=== PATIENT | male | born 1955 | race Caucasian/White ===

== ENCOUNTER 2017-01-11 05:33 | Inpatient (IN) | payer MEDICARE, OTHER ==
[2017-01-11] VITALS (14 sets, daily range): BP systolic 94–125; BP diastolic 54–82; PULSE 61–78; RESP 12–20; O2SAT 94–98
[~2017-01-11] VITALS: Ht 167.6 cm; Wt 86.1 kg
[~2017-01-11 05:33] MED LIST: AMOX-366 PO; ASPI-973 PO; CeFAZolin Inj 2 GM in IV Premix 1 EACH IV ONE; LIP40 PO; LOSA25TA21 PO; METH750T3 PO; Vancomycin 1 Gm/200 mL NS Premix IV ONE
[2017-01-11] MEDS: Lactated Ringer's 1,000 ML IV SCH ×3 (05:37→13:52)
[2017-01-11] MEDS ORDERED: CeFAZolin Inj 2 gm / 50mL D5W IV ONE (05:49)
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
[2017-01-11] MEDS ORDERED: Tranexamic Acid 100 mg/mL 10 mL Inj ONE (07:20)
[2017-01-11] MEDS ORDERED: 0.9% Sodium Chloride 100 ML ONE (07:20)
[2017-01-11] MEDS ORDERED: Bupivacaine Liposome 1.3% 20 mL Inj ONE (07:21)
[2017-01-11] MEDS ORDERED: Lactated Ringer's 500 ML IV PRN (08:03)
[2017-01-11] MEDS ORDERED: Lactated Ringer's 1,000 ML IV SCH (08:03)
[2017-01-11] MEDS ORDERED: Phenylephrine 10,000 mCg/mL Inj IVPUSH PRN (08:05)
[2017-01-11] MEDS ORDERED: EPHEDrine Sulfate 50 mg/mL Inj IVPUSH PRN (08:05)
[2017-01-11] MEDS ORDERED: fentaNYL-PF 50 mCg/mL 2 mL Inj IVPUSH PRN (08:05)
[2017-01-11] MEDS ORDERED: Atropine 0.4 mg/mL Inj IVPUSH PRN (08:05)
[2017-01-11] MEDS ORDERED: Dexamethasone 4 mg/mL Inj IVPUSH PRN (08:05)
[2017-01-11] MEDS ORDERED: HYDROmorphone 1 mg/mL Inj IVPUSH PRN ×2 (08:05→09:30)
[2017-01-11] MEDS ORDERED: Ondansetron 2 mg/mL 2 mL Inj IVPUSH PRN (08:05)
[2017-01-11] MEDS ORDERED: MetoCLOpramide 5 mg/mL 2 mL Inj IVPUSH PRN (08:05)
[2017-01-11] MEDS ORDERED: Labetalol 5 mg/mL 4 mL Inj IV PRN (08:05)
[2017-01-11] MEDS ORDERED: Bupivacaine Liposome 1.3% 20 mL Inj INFILTRATE ONE ×2 (08:15→08:42)
[2017-01-11] MEDS ORDERED: 0.9% Sodium Chloride 10 mL Inj INFILTRATE ONE ×2 (08:16→08:42)
[2017-01-11] MEDS ORDERED: Bupivacaine-MPF 0.5% W/EPI 30 mL Inj INFILTRATE ONE ×2 (08:17→08:42)
[2017-01-11] MEDS ORDERED: Polyethylene Glycol (PEG) 17 Gm Powder PO PRN (09:30)
[2017-01-11] MEDS ORDERED: Sodium Biphos-Phos 133 mL Enema RECTAL PRN (09:30)
[2017-01-11] MEDS ORDERED: diphenhydrAMINE 25 mg Capsule PO PRN (09:30)
[2017-01-11] MEDS ORDERED: Magnesium Hydroxide 10 mL Oral Concentration PO PRN (09:30)
[2017-01-11] MEDS ORDERED: Acetaminophen IV 1,000 MG in IV Premix 1 EACH IV ONE (09:30)
--- NOTE | 2017-01-11 10:07 | PCM.ANEP1 ---
Post Anesthesia PACU Phase 1 Assessment Vital Signs Vital Signs Date Time Temp Pulse Resp B/P Pulse Ox O2 Delivery O2 Flow Rate FiO2 01/11/17 09:47 14 98 01/11/17 09:45 61 15 100/64 98 Room Air 01/11/17 09:40 36.2 69 17 94/62 97 Room Air 01/11/17 06:05 36.2 78 18 125/77 94 Room Air Anesthetic Administered: SAB Level of Alertness: Awake, talking ESPINOSA's with Equal Strength: Yes Pain: No Nausea or Vomiting: No CV Function and Hydration: No Airway Device: Oxygen Delivery: Room Air Lungs: Clear to Auscultation, Normal Air Movement Dermatome Level: T10 (Umbilicus) PACU Phase 2 Assessment Complications: No Follow up Care: No Patient Instructions Provided: N/A Laurence Hernandez MD January 11, 2017 10:07
--- NOTE | 2017-01-11 10:11 | OP ---
[address] [address] OPERATIVE REPORT PATIENT: RASTA JARAMILLO : 1955 MR#: [id number] ADMIT: 01/11/2017 JOB ID: [id number] DATE OF SURGERY: 01/11/2017 PREOPERATIVE DIAGNOSIS(ES): Left hip degenerative arthritis. POSTOPERATIVE DIAGNOSIS(ES): Left hip degenerative arthritis. PROCEDURE: Left total hip arthroplasty. SURGEON: Mansoor Sloer DO STORAGE RECEIPT POSTER: Shivam Brennan PA-C INDICATIONS: The patient is a 61-year-old male with left hip severe degenerative arthritis with failed conservative measures and wished to proceed with a left total hip arthroplasty. We discussed the risks, benefits, and possible complications of surgery including, but not limited to injury to nerves and vessels, infection, bleeding, incomplete relief of symptoms, stiffness need for additional procedures, dislocation, deep venous thrombosis. All questions were answered and the patient wished to proceed. topographical field assistant was required for the successful completion of this procedure. PROCEDURE IN DETAIL: The patient was brought to the operating room. He was given a preoperative antibiotic and 1 g TXA preoperatively and surgical time-out was performed. He was placed comfortably on the lateral position. The left hip was sterilely prepped and draped an incision was made centered over the greater trochanter in line with the femur. Dissection was carefully carried through the subcutaneous tissue. Electrocautery was used for hemostasis. A split was made in the iliotibial band in line with the skin incision and the Charnley retractor was then placed. A split was then made in the gluteus medius between the border of the anterior 25%, posterior 75% and Hohmann retractors were placed on either side of the femoral neck. The anterior sleeve of tissue was released off of the trochanter leaving a 1/4-inch of tissue for repair. This was taken to a point just distal to vastus tubercle. A small triangular portion of capsule was then resected and the hip was then dislocated. A provisional neck cut was made 1 fingerbreadth above the level of lesser trochanter. The femoral head was removed. The femur was then prepared beginning with box osteotome and canal seeker. This was then broached sequentially up to a size 2 DePuy Tri-Lock stem, which had excellent fit and fill. Next, the acetabulum was addressed and anterior and posterior acetabular retractors were placed at the 3 o'clock and 9 o'clock positions respectively. The pulvinar and labrum were removed and the acetabulum was then reamed sequentially up to a size 51 reamer for a 52 cup. The 52 DePuy Avery 3-hole cup was impacted into position. Care was taken to ensure the appropriate abduction and anteversion. This was further secured with a single superior dome screw, which had excellent fixation. We then performed trials with the hip and elected to use a 32 neutral liner, which was impacted into position and a 32+1 ceramic head with the Tri-Lock size 2 standard femoral component. These components were impacted into position. The hip was located. It had excellent range of motion, great stability, equal leg lengths. The wound was copiously irrigated and then closed with #5 Ethibond to repair the capsule and to repair the gluteus medius. The remainder of the gluteus medius and vastus lateralis was repaired with #1 Surgilon. The iliotibial band was repaired with #1 Surgilon and 0-Vicryl. The subcu was closed with 2-0 Vicryl and 3-0 subcutaneous V-Lock suture. A mixture of Exparel, saline, and Marcaine was added as an adjunct local anesthetic. Sterile dressings were applied. Patient tolerated the procedure well. BLOOD LOSS: 150 cc. POSTOPERATIVE PROTOCOL: Have the patient weight bear to tolerance. Use walker for ambulation and will use aspirin 325 b.i.d. for 6 weeks for DVT prophylaxis and plan to send the patient home with Percocet.
--- NOTE | 2017-01-11 10:50 | DRSVH ---
PROCEDURE: X-RAY PELVIS W/LAT HIP (LT) ([id number]) INDICATIONS: POST OP HIP SURGERY TECHNIQUE: AP pelvis and lateral view of the left hip acquired. COMPARISON: [facility], , XR PELVIS W LATERAL HIP LT, 04/19/2016, 14:16. FINDINGS: Bones: Patient is status post left hip arthroplasty. hip arthroplasty, with hardware components in e xpected positions. The hip joint appears congruent. The visualized bony structures appear intact. Sacroiliac fixation as well as fixation plate and screws across the pubic symphysis are again noted. Soft tissues: Overlying postoperative changes are noted. No suspicious soft tissue densities. IMPRESSION: Postoperative left hip arthroplasty changes are noted. Dictated by: Debbi Vega M.D. on 01/11/2017 at 10:48 Approved by: Debbi Vega M.D. on 01/11/2017 at 10:49
[2017-01-11] MEDS: 0.9% Sodium Chloride 1,000 ML IV SCH ×3 (11:05→20:15)
[2017-01-11] MEDS: oxyCODONE-Acetamin 5-325 mg Tablet PO PRN ×3 (12:25→20:23)
[2017-01-11] MEDS ORDERED: fentaNYL-PF 50 mCg/mL 2 mL Inj ONE (13:18)
[2017-01-11] MEDS: CeFAZolin Inj 2 GM in IV Premix 1 EACH IV SCH (16:05)
[2017-01-11] MEDS: Sodium Chloride LOK Flush 10 mL Syringe IV SCH (16:10)
[2017-01-11] MEDS ORDERED: CeFAZolin Inj 2 GM in IV Premix 1 EACH IV SCH (16:30)
[2017-01-11] MEDS: Senna-Docusate 8.6-50 mg Tablet PO SCH (20:22)
[2017-01-12 00:35] VITALS: BP 121/74; PULSE 64; RESP 20; O2SAT 95
[2017-01-12] MEDS: Sodium Chloride LOK Flush 10 mL Syringe IV SCH ×4 (00:41→21:19)
[2017-01-12] MEDS: oxyCODONE-Acetamin 5-325 mg Tablet PO PRN ×4 (00:42→12:25)
[2017-01-12] MEDS: CeFAZolin Inj 2 GM in IV Premix 1 EACH IV SCH (00:49)
[2017-01-12 04:34] VITALS: BP 123/74; PULSE 75; RESP 20; O2SAT 96
[2017-01-12] MEDS: 0.9% Sodium Chloride 1,000 ML IV SCH ×2 (06:15→16:15)
[2017-01-12 06:53] LABS: BASOPHILS % (AUTO) 0.1 % (0-3); EOSINOPHILS % (AUTO) 1.5 % (0-5); MONOCYTES % (AUTO) 15.1 % (4-12); Mean Corpuscular Hemoglobin 32.2 pg (27.0-35.0); NEUTROPHILS % (AUTO) 63.4 % (40-74); Platelet Count 253 bil/L (150-400)
[2017-01-12] MEDS: Senna-Docusate 8.6-50 mg Tablet PO SCH ×2 (07:51→21:18)
--- NOTE | 2017-01-12 10:03 | PCM.PNORTH ---
Subjective Date of Service: January 12, 2017 Visit Information: Reason for Visit Left Hip Arthritis Surgery/Surgery Date LEFT TOTAL HIP 01/11/17 Post-Op Day # 1 Date of Admission: January 11, 2017 at 13:17 Hospital Day # Subjective Patient states he is feeling very good and that he has been up moving today. He states he feels well enough to go home today but understands that he does have some numbing medication on board that will wear off. He does not have any complaints today. Postop General: No Complaints, No Shortness of Breath, No Chest Pain, Good Appetite Pain Management: PO Objective Exam Objective Sitting up in chair Vital Signs and I/O Vital Sign - Last Date Time Temp Pulse Resp B/P Pulse Ox O2 Delivery O2 Flow Rate FiO2 01/12/17 09:19 Room Air 01/12/17 04:34 36.7 75 20 123/74 96 Intake and Output 01/11/17 01/11/17 01/12/17 Cumulative From/Thru 14:59 22:59 06:59 01/04/17 10:08 - 01/12/17 06:07 Intake Total 250 ml 994 ml 506 ml 2700 ml Output Total 150 ml 0 ml 500 ml 650 ml Balance 100 ml 994 ml 6 ml 2050 ml Intake Oral 300 ml 400 ml 700 ml IV Total 250 ml 694 ml 106 ml 2000 ml Output Urine Total 0 ml 500 ml 500 ml Estimated Blood Loss 150 ml 150 ml Lab & Micro Results Laboratory Tests Test 01/12/17 05:55 White Blood Count 7.6th/mm3 (3.8-10.1) Red Blood Count 3.98mil/mm3 (4.40-5.80) Hemoglobin 12.8g/dL (13.8-17.2) Hematocrit 39.4% (41.0-50.0) Mean Corpuscular Volume 99.0fL (81-100) Mean Corpuscular Hemoglobin 32.2pg (27.0-35.0) Mean Corpuscular Hemoglobin Concent 32.5% (32.0-37.0) Red Cell Distribution Width 12.7% (12.3-15.4) Platelet Count 253bil/L (150-400) Neutrophils (%) (Auto) 63.4% (40-74) Lymphocytes (%) (Auto) 19.8% (14-46) Monocytes (%) (Auto) 15.1% (4-12) Eosinophils (%) (Auto) 1.5% (0-5) Basophils (%) (Auto) 0.1% (0-3) Result Diagram: 01/12/17 0555 General Appearance: Alert, Oriented X3, Cooperative, No Acute Distress Extremities: Distal Pulses Palpable, No Compartment Syndrom Noted, Thigh & Calf Soft/Nontender Postop Sensory Motor: Distal Motor Intact, Movement in Toes, Distal Sensation Intact, NVI Distally SURGICAL WOUND : Wound Location/Description Perioperative dressing clean, dry and intact. Incision General Appearance: No Direct Observation Activity: Ambulate with PT (WBAT with FWW) Assessment & Plan Impression POD#1 left total hip arthroplasty Problems: Plan Please put on thigh-high compression stockings when they arrive for the patient. I have ordered them now. Weightbearing: Weightbearing as tolerated with rolling walker DVT prophylaxis: Aspirin 325 mg twice a day 6 weeks. Physical therapy for transfers, progressive ambulation, strengthening Wound care: Perioperative dressing will be changed to an island dressing tomorrow Analgesia: Oral pain management, most likely Percocet Discharge plan: Discharge home in 1-2 days; appears to be doing well and will likely go home tomorrow. Patient verbalized hip precautions Follow-up plan: In 2 weeks at [facility] with ROBINA for wound check and at [address] Soler with x-rays VTE Prophylaxis: Other (Aspirin 325mg BID x6 weeks) Vonda Hernández PA-C January 12, 2017 10:03
[2017-01-12 13:02] VITALS: BP 145/74; PULSE 100; RESP 18; O2SAT 96
[2017-01-12 19:40] VITALS: BP 154/91; PULSE 104; RESP 17; O2SAT 95
[2017-01-13] MEDS: 0.9% Sodium Chloride 1,000 ML IV SCH (02:15)
[2017-01-13 05:00] VITALS: BP 136/82; PULSE 97; RESP 17; O2SAT 96
[2017-01-13] MEDS: Senna-Docusate 8.6-50 mg Tablet PO SCH (09:01)
[2017-01-13] MEDS: Sodium Chloride LOK Flush 10 mL Syringe IV SCH (09:01)
--- NOTE | 2017-01-13 09:41 | PCM.PNORTH ---
Subjective Date of Service: January 13, 2017 Visit Information: Reason for Visit Left Hip Arthritis Surgery/Surgery Date LEFT TOTAL HIP 01/11/17 Post-Op Day # Date of Admission: January 11, 2017 at 13:17 Hospital Day # Subjective Status post day #2 left total hip arthroplasty. Patient doing very well. States that his pain is controlled and he is ready to go home. Postop General: No Complaints, No Shortness of Breath, No Chest Pain, Good Appetite Pain Management: PO Objective Exam Objective Patient is alert and oriented 3. Answering questions appropriately. Patient is sitting up in the bedside chair and not in acute distress today. Dressing is clean dry and intact. Calf is soft and nontender. Sensation and pulses intact, patient able to wiggle toes. Vital Signs and I/O Vital Sign - Last Date Time Temp Pulse Resp B/P Pulse Ox O2 Delivery O2 Flow Rate FiO2 01/13/17 05:00 36.8 97 17 136/82 96 Room Air Intake and Output 01/12/17 01/12/17 01/13/17 Cumulative From/Thru 15:00 23:00 07:00 01/04/17 10:08 - 01/13/17 05:00 Intake Total 1437 ml 1200 ml 5337 ml Output Total 1050 ml 750 ml 2450 ml Balance 387 ml 450 ml 2887 ml Intake Oral 1437 ml 1200 ml 3337 ml IV Total 2000 ml Output Urine Total 1050 ml 750 ml 2300 ml Estimated Blood Loss 150 ml # Bowel Movements 0 1 1 Result Diagram: 01/12/17 0555 SURGICAL WOUND : Incision General Appearance: No Direct Observation Activity: Ambulate with PT (WBAT with FWW) Assessment & Plan Impression Status post day #2 left total hip arthroplasty. Patient doing very well. Ready to be discharged to home. Problems: Plan Weightbearing: Weightbearing as tolerated with rolling walker DVT prophylaxis: Aspirin 325 mg twice a day 6 weeks. Perioperative dressing changed to island dressing today. Analgesia: Oral pain management, Percocet, and ibuprofen. Discharge plan: Discharge home today. Patient verbalized hip precautions Follow-up plan: In 2 weeks at [facility] with ROBINA for wound check and at [address] Soler with x-rays VTE Prophylaxis: Other (Aspirin 325mg BID x6 weeks) Ji Appiah PA-C January 13, 2017 09:41
--- NOTE | 2017-01-13 09:43 | PCM.DIORTH ---
Ortho Discharge Instruction Date of Service: January 13, 2017 Dates of Hospitalization Date of Hospital Admission January 11, 2017 at 13:17 Providers Admitting Physician: Mansoor Soler DO Primary Care Physician: Jp Uribe MD Attending Physician: Mansoor Soler DO Diet Discharge Diet: No restrictions Activity Discharge Activity-General: Try not to overdue Left Lower Extremity: Weight Bearing as tolerated Discharge Assist Device: Front Wheeled Walker Additional Instructions Discharge Instructions Weightbearing: Weightbearing as tolerated with rolling walker DVT prophylaxis: Take Aspirin 325 mg twice a day 6 weeks. Analgesia: Oral pain management, Percocet, and ibuprofen, prescription sent home with patient. May take Percocet 1-2 tablets every 4-6 hours as needed for pain, may also use ibuprofen instead. Dressing should remain clean and dry through at least tomorrow, day #4 would be even better to allow your silver dressing to have benefit. You may remove to shower after this and keep covered as needed. Maintain hip precautions Follow-up plan: In 2 weeks at [facility] with ROBINA for wound check and at [address] Soler with x-rays Ji Appiah PA-C January 13, 2017 09:43
[2017-01-13] MEDS ORDERED: DOCU-41 PO (09:46)
[2017-01-13] MEDS ORDERED: Aspirin-Expunged Drug, Do Not Renew! PO (09:46)
[2017-01-13] MEDS ORDERED: OXYC1TAB24 PO (09:46)
--- NOTE | 2017-01-13 09:48 | PCM.DC.ORT ---
Discharge Summary Date of Service: January 13, 2017 Date of Hospital Admission: January 11, 2017 at 13:17 Date of Surgery: January 11, 2017 Date of Discharge: January 13, 2017 Reason for Hospitalization: Left hip osteoarthritis Procedures Performed: Left total hip arthroplasty Hospital Course: Patient presented to [facility] surgical suite for the procedure of left total hip arthroplasty by Dr Mansoor Soler on 01/11/2017. Patient was prepped for surgery and the procedure was performed successfully, patient was discharged to PACU under stable condition, tolerated the procedure well. Once stabilized in PACU and pain well controlled, patient was admitted to the hospital floor for observation, pain control, and progression with physical therapy. The first 1-2 days the patient was able to resume a regular diet, void on their own, not having any problems with nausea or vomiting. The patient did not have any adverse falls, reactions, or events were all in the hospital. The patient began working with physical therapy on day one then progressed quite well with reasonable pain control. On day #2 the patient was able to ambulate safely on their own, and pain was controlled sufficiently to be discharged to home. We will utilize aspirin 325 mg by mouth twice a day for 6 weeks for DVT prophylaxis. The patient was discharged to home under stable condition with plan to follow- up with patient at 2 weeks for a postoperative appointment. Diagnosis at Time of Discharge Status post left total hip arthroplasty Problems: Orthopedic Follow up Plan: In Two Weeks in my clinic Discharge Instructions: Weightbearing: Weightbearing as tolerated with rolling walker DVT prophylaxis: Take Aspirin 325 mg twice a day 6 weeks. Analgesia: Oral pain management, Percocet, and ibuprofen, prescription sent home with patient. May take Percocet 1-2 tablets every 4-6 hours as needed for pain, may also use ibuprofen instead. Dressing should remain clean and dry through at least tomorrow, day #4 would be even better to allow your silver dressing to have benefit. You may remove to shower after this and keep covered as needed. Maintain hip precautions Follow-up plan: In 2 weeks at [facility] with ROBINA for wound check and at [address] Soler with x-rays ([Aspirin-Expunged Drug, Do Not Renew!]) 325 MG TABLET 325 MG PO BID Atorvastatin (Lipitor) 40 Mg Tablet 40 MG PO DAILY Docusate Sodium (Colace) 100 Mg Capsule 100 MG PO BID Losartan Potassium (Losartan Potassium) 25 Mg Tablet 25 MG PO DAILY Methocarbamol (Methocarbamol) 750 Mg Tablet 750 MG PO QID PRN PRN For Spasm oxyCODONE-Acetaminophen 5-325 mg (oxyCODONE-Acetaminophen 5-325 mg) 1 Each Tablet 1-2 TAB PO Q4 PRN PRN For Pain Ji Appiah PA-C January 13, 2017 09:48
== END 2017-01-13 11:30 | disposition home or self-care (01) | DRG 470 ==
LOC: SAS 05:33 → OSC 13:17
PROVIDERS: ADMIT Orthopaedic Surgery; ATTEND Orthopaedic Surgery
PROC: 0SRB04A Replacement of Left Hip Joint with Ceramic on Polyethylene Synthetic Substitute, Uncemented, Open Approach (ICD-10-PCS; principal; 2017-01-11 07:30)
DX: M16.52 Unilateral post-traumatic osteoarthritis, left hip (principal); I10 Essential (primary) hypertension; E78.00 Pure hypercholesterolemia, unspecified; Z79.82 Long term (current) use of aspirin